=== PATIENT | male | born 1980 | race Caucasian/White ===

== ENCOUNTER 2017-07-02 22:23 | Emergency (ER) | payer OTHER, SELFPAY ==
[~2017-07-02 22:23] MED LIST: Iopamidol 370 76% 125 ML VIAL FS ONE
[2017-07-02 23:10] LABS: #Basophils 0.1 thou/uL (0.0-0.2); #Eosinphils 0.3 thou/uL (0.0-0.7); #Lymphocytes 2.8 thou/uL (1.20-3.40); #Monocytes 0.8 thou/uL (0.11-0.59); #Neutrophils 5.9 thou/uL (1.40-6.50); %Basophils 1.2 % (0.0-1.0); %Eosinophils 3.3 % (0.0-10.0); %Lymphocytes 27.9 % (21.0-51.0); %Monocytes 8.1 % (0.0-10.0); %Neutrophils 59.5 % (42.0-75.0); Hemoglobin 15.8 g/dL (14.0-18.0); Mean Corpuscular HGB CONC 33.6 g/dL (32.0-36.0); Mean Corpuscular Hemoglobin 33.3 pg (27.0-31.0); Mean Platelet Volume 6.2 fL (7.4-10.4); Platelet Count 260 thou/uL (130-400); RBC Distribution Width 11.8 % (11.5-14.5); Red Blood Cell (RBC) Count 4.74 mill/uL (4.70-6.10); White Blood Cell (WBC) Count 9.9 thou/uL (4.8-10.8)
[2017-07-02 23:19] LABS: Clarity Clear (Clear)
[2017-07-02 23:23] LABS: Bacteria/HPF None Seen HPF (None Seen); Bilirubin Negative (Negative); Blood, Urine Negative (Negative); Glucose, Urine (Dipstick) Negative (Negative); Leukocyte Negative (Negative); Nitrite Negative (Negative); Protein, Urine (Dipstick) Negative (Neg-Trace); RBC/HPF None Seen HPF (0-3); Specific Gravity, Urine 1.001 (1.002-1.036); Squamous Epithelial None Seen HPF (0-3); Urobilinogen 0.2 mg/dL (0.2-1.0); WBC/HPF None Seen HPF (0-3)
[2017-07-02 23:29] LABS: Amphetamine Not Detected (NotDetected); Barbiturates Screen Not Detected (NotDetected); Benzodiazepine Screen Not Detected (NotDetected); Cocaine Metabolite Screen Not Detected (NotDetected); Medtox Control Line Valid? VALID (VALID); Methadone Not Detected (NotDetected); Methamphetamine Not Detected (NotDetected); Opiate Screen Not Detected (NotDetected); Oxycodone Screen Not Detected (NotDetected); Phencyclidine (PCP) Not Detected (NotDetected); THC/Cannabinoid Screen Detected (NotDetected); Tricyclic Screen Not Detected (NotDetected)
[2017-07-02] MEDS ORDERED: Ketorolac Tromethamine 30 MG/ML VIAL ONE (23:34)
[2017-07-02] MEDS ORDERED: Ondansetron HCl/PF 4 MG/2 ML Vial ONE (23:34)
[2017-07-02 23:36] LABS: PTT 26.8 SEC (22.9-36.1); Prothrombin Time 12.8 SEC (12.0-14.7)
[2017-07-02 23:44] LABS: ALT (SGPT) 17 U/L (8-55); AST (SGOT) 18 U/L (5-34); Albumin 4.5 g/dL (3.5-5.0); Alkaline Phosphatase 80 U/L (40-150); Anion Gap 20 mmol/L (10-20); BUN (Urea Nitrogen) 10 mg/dL (8.9-20.6); Bilirubin, Total 0.3 mg/dL (0.2-1.2); Calc. Creatinine Clearance 0 mL/min (70-130); Calcium 9.4 mg/dL (7.8-10.44); Carbon Dioxide 20 mmol/L (22-29); Chloride 106 mmol/L (98-107); Estimated GFR-MDRD Greater than 90; Globulin 2.8 g/dL (2.4-3.5); Glucose 92 mg/dL (70-105); Potassium 4.2 mmol/L (3.5-5.1); Protein, Total 7.3 g/dL (6.0-8.3); Sodium 142 mmol/L (136-145)
[2017-07-02 23:45] LABS: Acetaminophen Less than 6.0 mcg/mL (10.0-30.0); Alcohol 120 mg/dL (Less than 10); CK (CPK) 152 U/L (30-200); Salicylate Less than 8.0 mg/dL (15.0-30.0)
[2017-07-02 23:46] LABS: CKMB 1.3 ng/mL (0-6.6); Troponin I Less than 0.010 ng/mL (< 0.028)
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
== END 2017-07-03 01:47 | disposition home or self-care (01) ==
LOC: MADERS 22:23
DX: T07.XXXA Unspecified multiple injuries, initial encounter (principal); F10.129 Alcohol abuse with intoxication, unspecified; F17.210 Nicotine dependence, cigarettes, uncomplicated; V47.3XXA Unspecified car occupant injured in collision with fixed or stationary object in nontraffic accident, initial encounter
CPT/HCPCS: 70450; 71260; 72125; 74177; 80053; 80306; 80307; 81001; 82553; 83605; 84484; 85025; 85610; 85730; 87086; 93005; 96374; 96375; J1885; J2405

== ENCOUNTER 2017-12-22 08:58 | Emergency (ER) | payer MEDICAID, SELFPAY ==
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
== END 2017-12-22 10:20 | disposition home or self-care (01) ==
LOC: MADERS 08:58
DX: M77.9 Enthesopathy, unspecified (principal); F31.9 Bipolar disorder, unspecified; F17.210 Nicotine dependence, cigarettes, uncomplicated

== ENCOUNTER 2020-05-29 15:07 | Emergency (ER) | payer MEDICAID, SELFPAY ==
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
== END 2020-05-29 16:15 | disposition home or self-care (01) ==
LOC: MADERS 15:07
DX: S90.31XA Contusion of right foot, initial encounter (principal); F17.210 Nicotine dependence, cigarettes, uncomplicated; F31.9 Bipolar disorder, unspecified; V09.9XXA Pedestrian injured in unspecified transport accident, initial encounter

== ENCOUNTER 2021-03-14 00:47 | Emergency (ER) | payer SELFPAY ==
[2021-03-14] MEDS ORDERED: CEFAZOLIN 1 GM VIAL ONE (01:01)
[2021-03-14] MEDS ORDERED: Sodium Chloride 0.9% 200 ML ONE (01:01)
[2021-03-14] MEDS ORDERED: Sodium Chloride 0.9% 1,000 ML ONE (01:01)
[2021-03-14 01:02] LABS: #Basophils 0.1 thou/uL (0.0-0.2); #Eosinphils 0.3 thou/uL (0.0-0.7); #Lymphocytes 2.8 thou/uL (1.20-3.40); #Monocytes 0.8 thou/uL (0.11-0.59); #Neutrophils 5.4 thou/uL (1.40-6.50); %Basophils 0.8 % (0.0-1.0); %Lymphocytes 30.5 % (21.0-51.0); %Monocytes 8.3 % (0.0-10.0); %Neutrophils 57.5 % (42.0-75.0); Hemoglobin 14.7 g/dL (14.0-18.0); Mean Corpuscular HGB CONC 32.2 g/dL (32.0-36.0); Mean Corpuscular Hemoglobin 30.6 pg (27.0-31.0); Mean Platelet Volume 6.3 fL (7.4-10.4); Platelet Count 292 thou/uL (130-400); RBC Distribution Width 11.6 % (11.5-14.5); White Blood Cell (WBC) Count 9.3 thou/uL (4.8-10.8)
[2021-03-14] MEDS ORDERED: Lidocaine 1% w/Epinephrine 1:100K 20 ML VIAL ONE (01:03)
[2021-03-14 01:11] LABS: INR-International Normal Ratio 0.8; PTT 26.2 sec (22.9-36.1); Prothrombin Time 11.6 sec (12.0-14.7)
[2021-03-14 01:18] LABS: ALT (SGPT) 20 U/L (8-55); AST (SGOT) 17 U/L (5-34); Albumin 4.1 g/dL (3.5-5.0); Alkaline Phosphatase 90 U/L (40-110); Anion Gap 16 mmol/L (10-20); BUN (Urea Nitrogen) 13 mg/dL (8.9-20.6); Bilirubin, Total 0.2 mg/dL (0.2-1.2); Calc. Creatinine Clearance 0 mL/min (70-130); Calcium 8.9 mg/dL (7.8-10.44); Carbon Dioxide 21 mmol/L (22-29); Chloride 109 mmol/L (98-107); Glucose 139 mg/dL (70-105); Potassium 3.7 mmol/L (3.5-5.1); Protein, Total 7.1 g/dL (6.0-8.3); Sodium 142 mmol/L (136-145)
[2021-03-14] MEDS ORDERED: Fentanyl 100 MCG/2 ML VIAL ONE (01:25)
[2021-03-14 01:28] LABS: Acetaminophen Less than 6.0 mcg/mL (10.0-30.0); Alcohol Less than 10 mg/dL (Less than 10); Salicylate Less than 8.0 mg/dL (15.0-30.0)
[2021-03-14] MEDS ORDERED: Sterile Water Irrigation 250 ML BOT ONE (01:35)
[2021-03-14] MEDS ORDERED: Bacitracin 1 PK ONE (02:28)
[2021-03-14] MEDS ORDERED: Iopamidol 370 76% 100 ML VIAL ONE (10:48)
== END 2021-03-14 02:45 | disposition home or self-care (01) ==
LOC: MADERS 00:47
DX: S41.012A Laceration without foreign body of left shoulder, initial encounter (principal); S51.812A Laceration without foreign body of left forearm, initial encounter; S30.811A Abrasion of abdominal wall, initial encounter; R00.0 Tachycardia, unspecified; J45.909 Unspecified asthma, uncomplicated; F17.210 Nicotine dependence, cigarettes, uncomplicated; X99.1XXA Assault by knife, initial encounter
CPT/HCPCS: 12004; 71045; 71260; 80053; 80307; 85025; 85610; 85730; 86850; 86900; 86901; 94760; 96365; 96375; J0690; J3010; J3490; J7050; Q9967

== ENCOUNTER 2021-10-06 21:19 | Emergency (ER) | payer SELFPAY ==
[2021-10-06] MEDS ORDERED: Tetracaine 0.5% PF 4 ML BOT ONE (21:48)
[2021-10-06] MEDS ORDERED: Fluorescein Opthalmic Strip ONE (21:48)
[2021-10-06] MEDS ORDERED: Boostrix 0.5 ML (Tdap) VIAL ONE (22:44)
[2021-10-06] MEDS ORDERED: Ibuprofen 800 MG TAB ONE (22:44)
[2021-10-06] MEDS ORDERED: HYDROcodone/Acetaminophen 5/325 mg Tablet ONE (22:44)
== END 2021-10-06 23:02 | disposition home or self-care (01) ==
LOC: MADERS 21:19
DX: S05.01XA Injury of conjunctiva and corneal abrasion without foreign body, right eye, initial encounter (principal); J45.909 Unspecified asthma, uncomplicated; F17.210 Nicotine dependence, cigarettes, uncomplicated; Z23 Encounter for immunization; W22.8XXA Striking against or struck by other objects, initial encounter
CPT/HCPCS: 90471; 90715; 99283

== ENCOUNTER 2022-05-05 12:31 | Emergency (ER) | payer SELFPAY ==
[2022-05-05] MEDS ORDERED: hydrOXYzine 25 MG TAB ONE (13:23)
[2022-05-05] MEDS ORDERED: Ketorolac Tromethamine 30 MG/ML VIAL ONE (13:23)
[2022-05-05] MEDS ORDERED: diphenhydrAMINE 50 MG/ML VIAL ONE (13:23)
[2022-05-05] MEDS ORDERED: methylPREDNISolone Sod Succ/PF 125 MG/2 ML VIAL ONE (14:07)
[2022-05-06 11:32] LABS: Syphilis Antibody Nonreactive (Nonreactive); Syphilis Antibody Index 0.03 S/CO (<1.00 Non-Reactive)
== END 2022-05-05 14:19 | disposition home or self-care (01) ==
LOC: MADERS 12:31
DX: R21 Rash and other nonspecific skin eruption (principal); F17.210 Nicotine dependence, cigarettes, uncomplicated
CPT/HCPCS: 36415; 86780; 96372; 99282; J1200; J1885; J2930

== ENCOUNTER 2022-06-23 12:18 | Emergency (ER) | payer SELFPAY ==
[~2022-06-23 12:18] MED LIST changes: +Fluorescein Opthalmic Strip ONE; -Iopamidol 370 76% 125 ML VIAL FS ONE
[2022-06-23] MEDS ORDERED: Tetracaine 0.5% PF 4 ML BOT ONE (12:44)
== END 2022-06-23 13:10 | disposition home or self-care (01) ==
LOC: MADERS 12:18
DX: T15.11XA Foreign body in conjunctival sac, right eye, initial encounter (principal); F17.210 Nicotine dependence, cigarettes, uncomplicated
CPT/HCPCS: 65205

== ENCOUNTER 2023-02-08 15:44 | Emergency (ER) | payer SELFPAY ==
[2023-02-08] MEDS ORDERED: Bupivacaine PF 0.5% 30 ML VIAL ONE (15:53)
[2023-02-08] MEDS ORDERED: Promethazine HCl 25 MG/ML VIAL ONE (17:42)
[2023-02-08] MEDS ORDERED: Amoxicillin/Potassium Clav 875 MG TAB ONE (17:42)
== END 2023-02-08 18:00 | disposition home or self-care (01) ==
LOC: MADERS 15:44
DX: S61.302A Unspecified open wound of right middle finger with damage to nail, initial encounter (principal); F17.210 Nicotine dependence, cigarettes, uncomplicated; W23.0XXA Caught, crushed, jammed, or pinched between moving objects, initial encounter
CPT/HCPCS: 64450; 96372; J2550; S0020